=== PATIENT | male | born 1980 ===

== ENCOUNTER 2020-10-15 11:02 | Emergency (ER) | payer SELFPAY ==
--- NOTE | ~2020-10-15 | XR_ITS ---
EXAMINATION: XR chest 1V portable 10/15/2020 11:46 INDICATION: Cough PROCEDURE: AP portable chest COMPARISON: No prior studies for comparison. FINDINGS: The lungs are clear. The cardiomediastinal silhouette is within normal limits. There are no pleural effusions. There is no pneumothorax suspected. IMPRESSION: 1: NO ACUTE CARDIOPULMONARY DISEASE. Reviewed, dictated and finalized at location A.
[2020-10-15 11:15] VITALS: BP 138/77; PULSE 98; RESP 18; TEMP 36.8; O2SAT 98
--- NOTE | 2020-10-15 12:46 | ED.GENADULT ---
HPI - General Adult General Chief complaint: Upper Respiratory Infection Stated complaint: Sore Throat Time Seen by Provider: 10/15/20 11:22 Source: patient and RN notes reviewed Mode of arrival: ambulatory Limitations: no limitations History of Present Illness HPI narrative: Patient is a 40-year-old male who presents with sore throat congestion and nonproductive cough that has been present now for 1 week noting that his daughter has strep and he was around her patient denies vomiting diarrhea patient has been taking [id number] medications with minimal improvement on arrival patient does not appear distressed presents per private vehicle and notes that he has been taking [id number] medications Related Data Allergies Allergy/AdvReac Type Severity Reaction Status Date / Time No Known Allergies Allergy Verified 10/15/20 11:19 Review of Systems Review of Systems: All systems reviewed & are unremarkable except as noted in HPI and below PMFSH Past Medical History Medical History (Updated 10/15/20 @ 12:51 by Carmine Davenport PA-C) Diabetes mellitus Social History Social History (Updated 10/15/20 @ 12:47 by Carmine Davenport PA-C) Tobacco type: e-cigarettes/vaping Exam Narrative: Exam Narrative: GENERAL: Well-appearing, well-nourished, and in no acute distress. HEAD: Normocephalic, atraumatic. EYES: PERRLA and EOMI. ENT: Nares clear, no rhinorrhea or epistaxis. Mucous membranes moist. Oropharynx with erythema and tonsillar hypertrophy no exudate. Bilateral TMs pearly mitchell nonbulging. Uvula midline no trismus or drooling NECK: Supple. No adenopathy or masses. CHEST: Clear to auscultation. No respiratory distress. No wheezes rales or rhonchi HEART: Regular rate and rhythm. No murmur heard. EXTREMITIES: Normal range of motion. No edema. SKIN: Warm, dry, no rash. NEURO: No focal deficits. Alert and oriented x3. PSYCH: Normal mood and affect. Course Course Emergency Course: Patient in the room no distress aware of case findings treatment plan diagnosis positive strep pharyngitis will be managed outpatient provided with reasons to return agrees with this treatment plan Vital Signs Vital signs: Vital Signs Temperature 98.3 F 10/15/20 11:15 Pulse Rate 98 10/15/20 11:15 Respiratory Rate 18 10/15/20 11:15 Blood Pressure 138/77 10/15/20 11:15 Pulse Oximetry 98 10/15/20 11:15 Temperature 98.3 F 10/15/20 11:15 Pulse Rate 98 10/15/20 11:15 Respiratory Rate 18 10/15/20 11:15 Blood Pressure 138/77 10/15/20 11:15 Pulse Oximetry 98 10/15/20 11:15 Medical Decision Making MDM Narrative Medical decision making narrative: ABCs and vital signs intact and stable will be discharged home with outpatient follow-up agreeing to the treatment plan Vital Signs Vital Signs: Vital Signs Temperature 98.3 F 10/15/20 11:15 Pulse Rate 98 10/15/20 11:15 Respiratory Rate 18 10/15/20 11:15 Blood Pressure 138/77 10/15/20 11:15 Pulse Oximetry 98 10/15/20 11:15 Temperature 98.3 F 10/15/20 11:15 Pulse Rate 98 10/15/20 11:15 Respiratory Rate 18 10/15/20 11:15 Blood Pressure 138/77 10/15/20 11:15 Pulse Oximetry 98 10/15/20 11:15 Lab Data Labs: Strep Screen Positive Group A Strep *(Reference Range: Negative)* Discharge Plan Discharge Clinical Impression: Acute streptococcal pharyngitis Patient Disposition: Home, Self-Care Condition: Stable Instructions: Antibiotic Form, Strep Throat (ED) Additional Instructions: Follow up with your primary care provider within 1-2 days. Go to ER for shortness of breath, difficulty breathing, chest pain, fever/chills, weakness, nauseau/vomitting, unable to swallow or open the mouth etc. or any other concerns. Stay well-hydrated Take any prescribed medications as directed. Follow patient education sheets If you do not have a drug allergy to tylenol or
[2020-10-15 13:06] VITALS: BP 123/75; PULSE 76; RESP 18; O2SAT 99
== END 2020-10-15 13:07 | disposition home or self-care (01) ==
PROVIDERS: Emergency Provider Emergency Medicine; PCP Family Medicine
DX: J02.0 Streptococcal pharyngitis (principal); E11.9 Type 2 diabetes mellitus without complications; F17.290 Nicotine dependence, other tobacco product, uncomplicated
CPT/HCPCS: 71045; 87880; 99283

== ENCOUNTER 2020-12-25 14:21 | Emergency (ER) | payer SELFPAY ==
[2020-12-25 14:26] VITALS: BP 138/84; PULSE 81; RESP 17; TEMP 36.8; O2SAT 98
--- NOTE | 2020-12-25 17:33 | ED.SKABFB ---
HPI - Skin/Abscess/Foreign Bdy General Chief complaint: Skin/Abscess/Foreign Body Stated complaint: rash Time Seen by Provider: 12/25/20 16:10 Source: patient Mode of arrival: ambulatory Limitations: no limitations History of Present Illness HPI narrative: Patient is a 40-year-old male complaining of pruritic rash on his bilateral lower extremities and buttocks that started approximately 1 week ago. Patient states that the itchiness is worse especially during the hot weather. Patient denies any facial, lip, tongue or throat swelling. Patient denies any shortness of breath. Patient denies any extremity swelling. Related Data Home Medications Medication Instructions Recorded Confirmed atorvastatin 40 mg PO DAILY 12/25/20 empagliflozin [Jardiance] 10 mg PO DAILY 12/25/20 insulin glargine [Lantus Solostar 10 unit SUBCUT QPM 12/25/20 U-100 Insulin] metformin 500 mg PO BID 12/25/20 Allergies Allergy/AdvReac Type Severity Reaction Status Date / Time No Known Allergies Allergy Verified 12/25/20 14:58 Review of Systems Review of Systems: All systems reviewed & are unremarkable except as noted in HPI and below PMFSH Past Medical History Medical History (Updated 12/25/20 @ 17:36 by Joe Gunter MD) Diabetes mellitus Social History Social History (Updated 10/15/20 @ 12:47 by Carmine Davenport PA-C) Tobacco type: e-cigarettes/vaping Comments Past medical history: Diabetes, hyperlipidemia Family history: Diabetes Social history: Non-smoker no EtOH or drug use Exam Const: General: cooperative, healthy appearing, comfortable, no acute distress, well developed, alert and awake; No confusion Orientation/consciousness: oriented to person, oriented to place, oriented to time, patient oriented x3 and No confusion Limitations: no limitations HENMT: Head: normal to inspection, normocephalic and atraumatic Ears: hearing grossly normal bilaterally, TM normal on the right and TM normal on the left General nose exam: Normal external nose present, Normal nares present and No nasal discharge present Face and sinus: normal facial exam Mouth: Yes Normal oral and palatal mucosa present, Yes lip normal, Yes tongue normal and Yes oropharynx normal Throat: posterior oropharynx normal, tonsils normal and uvula midline Eyes: General: appearance normal, both eyes and all related structures Pupils: Equal, round and reactive pupils present EOM: EOMs intact bilaterally Neck: Neck: normal visual inspection, full ROM, no lymphadenopathy and no meningeal signs Chest: Chest palpation & inspection: normal inspection of the chest Resp: Effort & Inspection: normal respiratory effort, able to speak in complete sentences, no respiratory distress and not tachypneic Auscultation: clear to auscultation bilaterally, no crackles, no rales, no rhonchi and no wheezes Cardio: Rate: regular rate Rhythm: regular rhythm GI: Inspection: normal to inspection GI Palp: No abdominal tenderness, Yes Soft to palpation, No Tenderness to palpation present (GI), No Guarding due to palpation present (GI), No Rigid due to palpation and No Rebound tenderness present Auscultation: normal bowel sounds : General: Yes no CVA tenderness Back/Spine/Pelvis: Back: no CVA tenderness Skin: General skin exam: elasticity normal and turgor normal Other: Erythematous, pruritic nonspecific rash on buttocks and bilateral lower extremities Neuro: General: oriented to person, oriented to place, oriented to time, patient oriented x3, tone normal, moves all extremities, Normal light touch and pain sensation, no meningeal signs, no focal motor deficits, CN's II-XI intact bilaterally and No confusion Cranial nerves: Yes Equal, round and reactive pupils present Speech: No Abnormal speech present Sensory Exam: No Sensory deficit (Neuro) Extrem: General: normal to inspection, full ROM and capillary refill normal Psych: Appearance: grossly normal and well kempt Me
[2020-12-25] MEDS: methylPREDNISolone SOD SUCC 125 MG VIAL IM (17:41)
[2020-12-25] MEDS: diphenhydrAMINE HCl CAP 25 MG CAPSULE PO (17:41)
[2020-12-25] MEDS: FAMOTIDINE 20 MG TABLET 40 MG PO (17:41)
== END 2020-12-25 18:51 | disposition home or self-care (01) ==
PROVIDERS: Emergency Provider Emergency Medicine; PCP Family Medicine
DX: R21 Rash and other nonspecific skin eruption (principal); E11.9 Type 2 diabetes mellitus without complications; Z79.4 Long term (current) use of insulin; F17.290 Nicotine dependence, other tobacco product, uncomplicated
CPT/HCPCS: 96372; 99283; A9270; J2930